=== PATIENT | female | born 1955 | race African-American/Black ===

== ENCOUNTER 2022-04-13 07:53 | Inpatient (IN) ==
[2022-04-13] MEDS ORDERED: SODIUM CHLORIDE 0.9% 1,000 ML IV STA ×2 (08:14→09:45)
[2022-04-13 11:19] LABS: Arterial Base Excess iSTAT 4 MMOL/L (-2.5-2.5); Arterial Bicarbonate iSTAT 32.9 MMOL/L (20-26); Arterial O2 Saturation iSTAT 94 % (95-100); Arterial PCO2 iSTAT 74 MM HG (35-48); Arterial PO2 iSTAT 84 MM HG (80-95); Arterial Total CO2 iSTAT 35 MMO/L (23-27); Arterial pH iSTAT 7.255 (7.35-7.45)
[2022-04-13] MEDS ORDERED: ALBUTEROL/IPRATROPIUM 3 ML NEB RESP TX STA (11:31)
[2022-04-13] MEDS ORDERED: methylPREDNISolone SOD SUC 125 MG/2 ML VIAL IV STA (11:32)
[2022-04-13 11:47] LABS: Calcium 9.1 MG/DL (8.5-10.1); Osmolality,Calculated 289.6 MOS/KG (273-304)
[2022-04-13 12:06] LABS: Basophils # 0.1 10*3/uL (0.0-0.2); Basophils % 0.7 % (0.0-0.8); Eosinophils # 0.2 10*3/uL (0.0-0.87); Eosinophils % 1.9 % (0.00-10.9); Hematocrit 37.9 VOL% (35.7-47.0); Hemoglobin 11.1 GM/DL (12.0-16.0); Immature Granulocytes % 3.6 %; Immature Granulocytes Absolute 0.31 #; Lymphocytes # 2.2 10*3/uL (1.4-4.0); Lymphocytes % 24.9 % (21.3-54.2); Mean Corpuscular HGB Conc 29.3 GM/DL (32-36); Mean Corpuscular Volume 100.3 FL (87-102); Mean Platelet Volume 10.6 FL (9.6-12.0); Monocytes # 0.8 10*3/uL (0.11-0.8); Monocytes % 9.4 % (1.7-12.7); NRBC # 0.05 10*3/uL; Neutrophils % 59.5 % (38.7-73.9); Platelet Count 212 T/CUMM (130-400); Red Blood Count 3.78 MC/CUMM (3.8-5.5); Red Cell Distribution Width 15.8 % (9.3-17.3); White Blood Count 8.6 T/CUMM (4-12)
[2022-04-13 12:26] LABS: Arterial Base Excess iSTAT 4 MMOL/L (-2.5-2.5); Arterial Bicarbonate iSTAT 32.1 MMOL/L (20-26); Arterial O2 Saturation iSTAT 92 % (95-100); Arterial PCO2 iSTAT 63 MM HG (35-48); Arterial PO2 iSTAT 73 MM HG (80-95); Arterial Total CO2 iSTAT 34 MMO/L (23-27); Arterial pH iSTAT 7.313 (7.35-7.45)
[2022-04-13] MEDS ORDERED: ONDANSETRON 4 MG/2 ML VIAL IV PRN (13:52)
[2022-04-13] MEDS ORDERED: NITROGLYCERIN SL 0.4 MG TABLET SL PRN (13:55)
[2022-04-13] MEDS ORDERED: NITROGLYCERIN 0.3 MG SL PRN (13:55)
[2022-04-13] MEDS ORDERED: DEXTROSE 10% 250 ML BAG IV PRN (14:05)
[2022-04-13] MEDS ORDERED: AZITHROMYCIN INJ 500 MG in SODIUM CHLORIDE 0.9% 250 ML IV SCH (15:00)
[2022-04-13 15:58] LABS: Thyroid Stimulating Hormone 1.84 uIU/ml (0.358-3.74)
[2022-04-13] MEDS: LACTATED RINGERS 1,000 ML IV SCH (17:40)
[2022-04-13] MEDS: INSULIN LISPRO 100 UNIT/ML SUBCUT SCH (18:33)
[2022-04-13 18:38] LABS: Arterial Base Excess iSTAT 5 MMOL/L (-2.5-2.5); Arterial Bicarbonate iSTAT 33.4 MMOL/L (20-26); Arterial O2 Saturation iSTAT 46 % (95-100); Arterial PCO2 iSTAT 69 MM HG (35-48); Arterial PO2 iSTAT 29 MM HG (80-95); Arterial Total CO2 iSTAT 35 MMO/L (23-27); Arterial pH iSTAT 7.295 (7.35-7.45)
[2022-04-13 18:55] LABS: Arterial Base Excess iSTAT 4 MMOL/L (-2.5-2.5); Arterial Bicarbonate iSTAT 31.1 MMOL/L (20-26); Arterial O2 Saturation iSTAT 84 % (95-100); Arterial PCO2 iSTAT 59 MM HG (35-48); Arterial PO2 iSTAT 54 MM HG (80-95); Arterial Total CO2 iSTAT 33 MMO/L (23-27); Arterial pH iSTAT 7.328 (7.35-7.45)
[2022-04-13] MEDS: ZIPRASIDONE 20 MG/1 ML VIAL IM PRN (19:14)
[2022-04-13] MEDS: hydrALAZINE 20 MG/1 ML VIAL IV PRN (19:53)
[2022-04-13] MEDS: methylPREDNISolone SOD SUC 40 MG/1 ML VIAL IV SCH (20:30)
[2022-04-13] MEDS: lamoTRIgine 25 MG TABLET PO SCH (20:31)
[2022-04-13] MEDS: DIVALPROEX 500 MG TABLET PO SCH (20:31)
[2022-04-13] MEDS: BENZTROPINE 1 MG TABLET PO SCH (20:31)
[2022-04-13] MEDS: traZODone 50 MG TABLET PO SCH (20:31)
[2022-04-13] MEDS: DOCUSATE SODIUM 100 MG CAPSULE PO SCH (20:31)
[2022-04-13] MEDS: MONTELUKAST 10 MG TABLET PO SCH (20:32)
[2022-04-13] MEDS: ENOXAPARIN 40 MG/0.4 ML SYRINGE SUBCUT SCH (20:32)
[2022-04-13] MEDS: MIRTAZAPINE 15 MG TABLET PO SCH (20:32)
[2022-04-13] MEDS ORDERED: LURASIDONE 60 MG TABLET PO SCH (21:00)
[2022-04-14] MEDS: ALBUTEROL/IPRATROPIUM 3 ML NEB RESP TX SCH ×5 (00:12→19:29)
[2022-04-14 00:26] LABS: Arterial Base Excess iSTAT 4 MMOL/L (-2.5-2.5); Arterial Bicarbonate iSTAT 32.8 MMOL/L (20-26); Arterial O2 Saturation iSTAT 90 % (95-100); Arterial PCO2 iSTAT 68 MM HG (35-48); Arterial PO2 iSTAT 67 MM HG (80-95); Arterial Total CO2 iSTAT 35 MMO/L (23-27)
[2022-04-14] MEDS: INSULIN LISPRO 100 UNIT/ML SUBCUT SCH ×5 (01:01→22:53)
[2022-04-14] MEDS: LACTATED RINGERS 1,000 ML IV SCH (03:40)
[2022-04-14 05:00] LABS: Calcium 8.9 MG/DL (8.5-10.1); Osmolality,Calculated 291.6 MOS/KG (273-304); Potassium 4.3 MMOL/L (3.5-5.1)
[2022-04-14 05:06] LABS: Basophils % 0.5 % (0.0-0.8); Hematocrit 35.5 VOL% (35.7-47.0); Hemoglobin 10.6 GM/DL (12.0-16.0); Immature Granulocytes % 6.4 %; Immature Granulocytes Absolute 0.49 #; Lymphocytes # 1.1 10*3/uL (1.4-4.0); Lymphocytes % 14.3 % (21.3-54.2); Mean Corpuscular HGB Conc 29.9 GM/DL (32-36); Mean Corpuscular Volume 100.3 FL (87-102); Mean Platelet Volume 10.4 FL (9.6-12.0); Monocytes # 0.2 10*3/uL (0.11-0.8); Monocytes % 2.5 % (1.7-12.7); NRBC # 0.07 10*3/uL; Neutrophils % 76.3 % (38.7-73.9); Platelet Count 201 T/CUMM (130-400); Red Blood Count 3.54 MC/CUMM (3.8-5.5); Red Cell Distribution Width 15.7 % (9.3-17.3); White Blood Count 7.7 T/CUMM (4-12)
[2022-04-14] MEDS: methylPREDNISolone SOD SUC 40 MG/1 ML VIAL IV SCH ×2 (05:11→17:19)
[2022-04-14 05:16] LABS: Lymphocytes 14 % (20-55); Nucleated Red Blood Cells 1 /100 WBC (0-5); Platelet Estimate Adequate; Total Cells Counted 100
[2022-04-14] MEDS: hydrALAZINE 20 MG/1 ML VIAL IV PRN (06:05)
[2022-04-14 06:33] LABS: Arterial Base Excess iSTAT 4 MMOL/L (-2.5-2.5); Arterial Bicarbonate iSTAT 30.8 MMOL/L (20-26); Arterial O2 Saturation iSTAT 94 % (95-100); Arterial PCO2 iSTAT 57 MM HG (35-48); Arterial PO2 iSTAT 75 MM HG (80-95); Arterial Total CO2 iSTAT 33 MMO/L (23-27); Arterial pH iSTAT 7.339 (7.35-7.45)
[2022-04-14] MEDS: THEOPHYLLINE ER (24 HR) 400 MG CAPSULE PO SCH (08:01)
[2022-04-14] MEDS: DOCUSATE SODIUM 100 MG CAPSULE PO SCH ×2 (08:01→22:53)
[2022-04-14] MEDS: BENZTROPINE 1 MG TABLET PO SCH ×2 (08:01→22:53)
[2022-04-14] MEDS: lamoTRIgine 25 MG TABLET PO SCH ×2 (08:01→22:54)
[2022-04-14] MEDS: ESCITALOPRAM 10 MG TABLET PO SCH (08:01)
[2022-04-14] MEDS: LOSARTAN 25 MG TABLET PO SCH (08:01)
[2022-04-14] MEDS: traZODone 50 MG TABLET PO SCH (22:53)
[2022-04-14] MEDS: DIVALPROEX 500 MG TABLET PO SCH (22:53)
[2022-04-14] MEDS: MONTELUKAST 10 MG TABLET PO SCH (22:54)
[2022-04-14] MEDS: ENOXAPARIN 40 MG/0.4 ML SYRINGE SUBCUT SCH (22:54)
[2022-04-14] MEDS: MIRTAZAPINE 15 MG TABLET PO SCH (22:54)
[2022-04-14] MEDS: LURASIDONE 40 MG TABLET PO SCH (22:54)
[2022-04-15] MEDS: ALBUTEROL/IPRATROPIUM 3 ML NEB RESP TX SCH ×4 (00:50→20:12)
[2022-04-15] MEDS: methylPREDNISolone SOD SUC 40 MG/1 ML VIAL IV SCH ×2 (04:53→18:14)
[2022-04-15] MEDS: INSULIN LISPRO 100 UNIT/ML SUBCUT SCH ×4 (08:26→21:23)
[2022-04-15] MEDS: BENZTROPINE 1 MG TABLET PO SCH ×2 (10:21→21:23)
[2022-04-15] MEDS: ESCITALOPRAM 10 MG TABLET PO SCH (10:21)
[2022-04-15] MEDS: LOSARTAN 25 MG TABLET PO SCH (10:22)
[2022-04-15] MEDS: THEOPHYLLINE ER (24 HR) 400 MG CAPSULE PO SCH (10:22)
[2022-04-15] MEDS: DOCUSATE SODIUM 100 MG CAPSULE PO SCH ×2 (10:22→21:23)
[2022-04-15] MEDS: AZITHROMYCIN 250 MG TABLET PO SCH (10:22)
[2022-04-15] MEDS: ZIPRASIDONE 20 MG/1 ML VIAL IM PRN (10:24)
[2022-04-15] MEDS: lamoTRIgine 25 MG TABLET PO SCH ×2 (10:26→21:23)
[2022-04-15 18:18] LABS: Basophils % 0.5 % (0.0-0.8); Eosinophils # 0.1 10*3/uL (0.0-0.87); Eosinophils % 0.6 % (0.00-10.9); Hematocrit 37.3 VOL% (35.7-47.0); Hemoglobin 11.1 GM/DL (12.0-16.0); Immature Granulocytes % 4.2 %; Immature Granulocytes Absolute 0.35 #; Lymphocytes # 1.8 10*3/uL (1.4-4.0); Lymphocytes % 21.3 % (21.3-54.2); Mean Corpuscular HGB Conc 29.8 GM/DL (32-36); Mean Corpuscular Volume 99.5 FL (87-102); Mean Platelet Volume 10.2 FL (9.6-12.0); Monocytes # 0.9 10*3/uL (0.11-0.8); Monocytes % 10.3 % (1.7-12.7); NRBC # 0.04 10*3/uL; Neutrophils % 63.1 % (38.7-73.9); Platelet Count 198 T/CUMM (130-400); Red Blood Count 3.75 MC/CUMM (3.8-5.5); Red Cell Distribution Width 15.8 % (9.3-17.3); White Blood Count 8.4 T/CUMM (4-12)
[2022-04-15] MEDS: LURASIDONE 40 MG TABLET PO SCH (21:22)
[2022-04-15] MEDS: DIVALPROEX 500 MG TABLET PO SCH (21:22)
[2022-04-15] MEDS: MIRTAZAPINE 15 MG TABLET PO SCH (21:22)
[2022-04-15] MEDS: MONTELUKAST 10 MG TABLET PO SCH (21:23)
[2022-04-15] MEDS: ENOXAPARIN 40 MG/0.4 ML SYRINGE SUBCUT SCH (21:23)
[2022-04-15] MEDS: traZODone 50 MG TABLET PO SCH (21:23)
[2022-04-16] MEDS: ALBUTEROL/IPRATROPIUM 3 ML NEB RESP TX SCH ×4 (00:38→19:25)
[2022-04-16] MEDS: ZIPRASIDONE 20 MG/1 ML VIAL IM PRN ×2 (01:44→09:11)
[2022-04-16] MEDS: methylPREDNISolone SOD SUC 40 MG/1 ML VIAL IV SCH ×2 (04:49→16:57)
[2022-04-16 07:22] LABS: Basophils # 0.1 10*3/uL (0.0-0.2); Basophils % 0.6 % (0.0-0.8); Eosinophils # 0.1 10*3/uL (0.0-0.87); Eosinophils % 1.5 % (0.00-10.9); Hemoglobin 10.7 GM/DL (12.0-16.0); Immature Granulocytes % 2.9 %; Immature Granulocytes Absolute 0.24 #; Lymphocytes % 23.7 % (21.3-54.2); Mean Corpuscular HGB Conc 29.7 GM/DL (32-36); Mean Corpuscular Volume 100.3 FL (87-102); Mean Platelet Volume 10.3 FL (9.6-12.0); Monocytes # 0.7 10*3/uL (0.11-0.8); Monocytes % 8.6 % (1.7-12.7); NRBC # 0.02 10*3/uL; Neutrophils % 62.7 % (38.7-73.9); Platelet Count 183 T/CUMM (130-400); Red Blood Count 3.59 MC/CUMM (3.8-5.5); Red Cell Distribution Width 15.5 % (9.3-17.3); White Blood Count 8.2 T/CUMM (4-12)
[2022-04-16 07:38] LABS: Calcium 8.9 MG/DL (8.5-10.1); Osmolality,Calculated 289.7 MOS/KG (273-304); Potassium 3.7 MMOL/L (3.5-5.1)
[2022-04-16 07:38] LABS: ABG Base Excess 4.1 MMOL/L (-2.5-2.5); ABG Oxygen Saturation 94.1 % (95-100); ABG PCO2 67.6 MM HG (35-48); ABG PO2 79.7 MM HG (80-95); ABG TCO2 29.9 MMOL/L (23-27)
[2022-04-16] MEDS: INSULIN LISPRO 100 UNIT/ML SUBCUT SCH ×4 (07:59→21:42)
[2022-04-16] MEDS: BENZTROPINE 1 MG TABLET PO SCH ×2 (12:54→21:42)
[2022-04-16] MEDS: DOCUSATE SODIUM 100 MG CAPSULE PO SCH ×2 (12:54→21:41)
[2022-04-16] MEDS: lamoTRIgine 25 MG TABLET PO SCH ×2 (12:55→21:41)
[2022-04-16] MEDS: LOSARTAN 25 MG TABLET PO SCH (12:55)
[2022-04-16] MEDS: ESCITALOPRAM 10 MG TABLET PO SCH (12:55)
[2022-04-16] MEDS: AZITHROMYCIN 250 MG TABLET PO SCH (12:55)
[2022-04-16] MEDS: THEOPHYLLINE ER (24 HR) 400 MG CAPSULE PO SCH (12:55)
[2022-04-16] MEDS: ENOXAPARIN 40 MG/0.4 ML SYRINGE SUBCUT SCH (21:40)
[2022-04-16] MEDS: MONTELUKAST 10 MG TABLET PO SCH (21:41)
[2022-04-16] MEDS: DIVALPROEX 500 MG TABLET PO SCH (21:41)
[2022-04-16] MEDS: MIRTAZAPINE 15 MG TABLET PO SCH (21:41)
[2022-04-16] MEDS: LURASIDONE 40 MG TABLET PO SCH (21:41)
[2022-04-16] MEDS: traZODone 50 MG TABLET PO SCH (21:42)
[2022-04-17] MEDS: ALBUTEROL/IPRATROPIUM 3 ML NEB RESP TX SCH ×4 (00:22→21:20)
[2022-04-17] MEDS: methylPREDNISolone SOD SUC 40 MG/1 ML VIAL IV SCH (03:59)
[2022-04-17 04:57] LABS: Arterial Base Excess iSTAT 6 MMOL/L (-2.5-2.5); Arterial Bicarbonate iSTAT 34.2 MMOL/L (20-26); Arterial O2 Saturation iSTAT 96 % (95-100); Arterial PCO2 iSTAT 66 MM HG (35-48); Arterial PO2 iSTAT 95 MM HG (80-95); Arterial Total CO2 iSTAT 36 MMO/L (23-27); Arterial pH iSTAT 7.321 (7.35-7.45)
[2022-04-17 05:56] LABS: Calcium 8.7 MG/DL (8.5-10.1); Osmolality,Calculated 290.6 MOS/KG (273-304)
[2022-04-17 06:04] LABS: Basophils % 0.3 % (0.0-0.8); Eosinophils % 0.1 % (0.00-10.9); Hematocrit 36.3 VOL% (35.7-47.0); Hemoglobin 10.7 GM/DL (12.0-16.0); Immature Granulocytes % 2.4 %; Immature Granulocytes Absolute 0.21 #; Lymphocytes # 2.3 10*3/uL (1.4-4.0); Lymphocytes % 26.1 % (21.3-54.2); Mean Corpuscular HGB Conc 29.5 GM/DL (32-36); Mean Corpuscular Volume 99.5 FL (87-102); Mean Platelet Volume 10.3 FL (9.6-12.0); Monocytes # 0.5 10*3/uL (0.11-0.8); Monocytes % 5.4 % (1.7-12.7); NRBC # 0.02 10*3/uL; Neutrophils % 65.7 % (38.7-73.9); Platelet Count 196 T/CUMM (130-400); Red Blood Count 3.65 MC/CUMM (3.8-5.5); Red Cell Distribution Width 15.1 % (9.3-17.3); White Blood Count 8.7 T/CUMM (4-12)
[2022-04-17] MEDS: INSULIN LISPRO 100 UNIT/ML SUBCUT SCH ×4 (08:12→20:48)
[2022-04-17] MEDS: BENZTROPINE 1 MG TABLET PO SCH ×2 (10:41→20:39)
[2022-04-17] MEDS: ESCITALOPRAM 10 MG TABLET PO SCH (10:41)
[2022-04-17] MEDS: THEOPHYLLINE ER (24 HR) 400 MG CAPSULE PO SCH (10:41)
[2022-04-17] MEDS: LOSARTAN 25 MG TABLET PO SCH (10:42)
[2022-04-17] MEDS: AZITHROMYCIN 250 MG TABLET PO SCH (10:42)
[2022-04-17] MEDS: lamoTRIgine 25 MG TABLET PO SCH ×2 (10:42→20:41)
[2022-04-17] MEDS: DOCUSATE SODIUM 100 MG CAPSULE PO SCH ×2 (10:42→20:41)
[2022-04-17] MEDS: ZIPRASIDONE 20 MG/1 ML VIAL IM PRN (17:10)
[2022-04-17] MEDS: LURASIDONE 40 MG TABLET PO SCH (20:39)
[2022-04-17] MEDS: MIRTAZAPINE 15 MG TABLET PO SCH (20:40)
[2022-04-17] MEDS: MONTELUKAST 10 MG TABLET PO SCH (20:41)
[2022-04-17] MEDS: DIVALPROEX 500 MG TABLET PO SCH (20:41)
[2022-04-17] MEDS: traZODone 50 MG TABLET PO SCH (20:44)
[2022-04-17] MEDS: ENOXAPARIN 40 MG/0.4 ML SYRINGE SUBCUT SCH (20:45)
[2022-04-18] MEDS: ALBUTEROL/IPRATROPIUM 3 ML NEB RESP TX SCH ×2 (01:25→17:05)
[2022-04-18] MEDS: INSULIN LISPRO 100 UNIT/ML SUBCUT SCH ×2 (07:31→11:31)
[2022-04-18] MEDS ORDERED: predniSONE 20 MG TABLET PO SCH (09:00)
[2022-04-18] MEDS: THEOPHYLLINE ER (24 HR) 400 MG CAPSULE PO SCH (09:08)
[2022-04-18] MEDS: AZITHROMYCIN 250 MG TABLET PO SCH (09:08)
[2022-04-18] MEDS: BENZTROPINE 1 MG TABLET PO SCH (09:08)
[2022-04-18] MEDS: DOCUSATE SODIUM 100 MG CAPSULE PO SCH (09:08)
[2022-04-18] MEDS: LOSARTAN 25 MG TABLET PO SCH (09:08)
[2022-04-18] MEDS: ESCITALOPRAM 10 MG TABLET PO SCH (09:09)
[2022-04-18] MEDS: lamoTRIgine 25 MG TABLET PO SCH (09:09)
[2022-04-18 12:28] VITALS: BP 152/96
[2022-04-18 16:36] LABS: Arterial Base Excess iSTAT 3 MMOL/L (-2.5-2.5); Arterial Bicarbonate iSTAT 32.1 MMOL/L (20-26); Arterial O2 Saturation iSTAT 89 % (95-100); Arterial PCO2 iSTAT 72 MM HG (35-48); Arterial PO2 iSTAT 67 MM HG (80-95); Arterial Total CO2 iSTAT 34 MMO/L (23-27)
== END 2022-04-18 12:49 | DRG 189 ==
LOC: EDUNIT# → N.ED 07:53 → N.EDINP 15:52 → SUATTDRO 15:52 → N.EDINP 17:42 → N.CC 18:01 → N.5E 04-14 16:35
PROVIDERS: ADMIT Internal Medicine; ATTEND Internal Medicine